=== PATIENT | male | born 1965 | race Caucasian/White ===

== ENCOUNTER 2016-12-30 14:39 | Emergency (ER) | payer OTHER ==
[~2016-12-30] VITALS: Ht 170.2 cm; Wt 100.0 kg
[2016-12-30 14:41] VITALS: Ht 170.2 cm; Wt 100.0 kg
[2016-12-30] MEDS ORDERED: KETOROLAC 30 MG INJ IV STA (15:36)
[2016-12-30] MEDS ORDERED: SOD CHLORIDE 0.9% 1,000 ML IV ONE (16:00)
[2016-12-30] MEDS ORDERED: METOCLOPRAMIDE 10 MG INJ IV ONE (16:00)
[2016-12-30] MEDS ORDERED: DIPHENHYDRAMINE 50 MG INJ IV ONE (16:00)
--- NOTE | 2016-12-30 16:27 | RADRPT ---
PROCEDURE: CT Brain without contrast. CLINICAL INDICATION: Headache TECHNIQUE: A CT of the brain was performed on a multidetector CT scanner utilizing axial imaging f rom the skull base through the vertex without IV contrast. Multiplanar reformatted images were made . Images were reviewed on a PACS workstation. The CTDIvol is 44 mGy and the DLP is 720 mGycm. Individualized dosed optimization technique was used for the performance of this exam. This included 1. Automated exposure control. 2. Adjustment of the mA and / or kV according to the patient's size. 3. The use of iterative reconstruction technique. COMPARISON: None FINDINGS: There is no intracranial hemorrhage, mass effect, or midline shift. No extra-axial fluid collection is seen. The ventricles and sulci are normal in size and configuration. The density of the brain is normal, and the carranza white matter differentiation appears well-preserved. The visualized paranasal sinuses and osseous structures are grossly unremarkable. IMPRESSION: 1. No evidence of acute intracranial pathology. 2. The brain is normal in appearance. .Edvin King MD, Date Time Electronically viewed and signed by .Edvin King MD, on 12/30/2016 16:27 .A/
[2016-12-30] MEDS ORDERED: HYDR-906 PO (16:55)
[2016-12-30] MEDS ORDERED: IBUP-1542 PO (16:55)
[2016-12-30 17:03] VITALS: BP 130/76; PULSE 55; RESP 20; TEMP 98.2
--- NOTE | 2016-12-30 17:03 | ERD ---
ER Documentation Chief Complaint Date/Time DATE: 12/30/16 TIME: 17:00 Chief Complaint pt c/o right sided headache x 3 days HPI This is a 51-year-old male presents to the ER with a right-sided headache that started 3 days ago. Patient states that pain is stabbing in nature rated as 5 out of 10. Patient denies any eyeball pain or vision changes or vision loss. He denies any nausea or vomiting. He does not have a fever does not have any chills. He denies any neck pain or neck stiffness. Patient did have a recent upper respiratory infection, and his had similar symptoms. Patient has not taken anything for the headache. He denies any dizziness, loss of consciousness, trauma to the head. ROS 12 point review of systems was done, all negative except per HPI. Medications Home Meds Active Scripts Hydrocodone/Acetaminophen ([place] 5-325 Tablet) 1 Each Tablet, 1 TAB PO Q6H Y for PAIN, #20 TAB Prov:COLLIN CRUZ 12/30/16 Ibuprofen* (Motrin*) 600 Mg Tab, 600 MG PO Q6, #30 TAB Prov:BEVERLY CRUZNA C 12/30/16 Allergies Allergies: Coded Allergies: No Known Allergy (Unverified , 12/30/16) PMhx/Soc Medical and Surgical Hx: pt denies Medical Hx, pt denies Surgical Hx Hx Alcohol Use: Yes Hx Substance Use: No Hx Tobacco Use: No Smoking Status: Current every day smoker Physical Exam Vitals Vital Signs Date Time Temp Pulse Resp B/P Pulse Ox O2 Delivery O2 Flow Rate FiO2 12/30/16 14:41 97.3 74 18 128/85 98 Physical Exam GENERAL: The patient is well developed and appropriate for usual state of health , in no apparent distress. HEENT: Atraumatic. Conjunctivae are pink. Pupils equal, round, and reactive to light. Extraocular muscles are grossly intact. Bilateral tympanic membranes are clear with no evidence of erythema, bulging or perforation. No sinus tenderness. NECK: C-spine is soft and supple. There is no cervical lymphadenopathy. CHEST: Clear to auscultation bilaterally. There are no rales, wheezes or rhonchi. HEART: Regular rate and rhythm. No murmurs, clicks, rubs or gallops. EXTREMITIES: Equal pulses bilaterally. There is no peripheral clubbing, cyanosis or edema. No focal swelling or erythema. Full range of motion. Grossly neurovascularly intact. NEURO: Alert and oriented. Cranial nerves II through XII are intact. Motor strength in all 4 extremities with 5/5 strength. Sensation grossly intact. Normal speech and gait. Negative Rhomberg. +2 DTRs. SKIN: There is no apparent rash or petechia. The skin is warm and dry. Results 24 hrs Current Medications Medications (Trade) Dose Ordered Sig/Champ Route PRN Reason Start Time Stop Time Status Last Admin Dose Admin Ketorolac Tromethamine (Toradol) 30 mg ONCE STAT IV 12/30/16 15:36 12/30/16 15:39 DC 12/30/16 15:52 Metoclopramide HCl (Reglan) 10 mg ONCE ONCE IV 12/30/16 16:00 12/30/16 16:01 DC 12/30/16 15:54 Diphenhydramine HCl 25 mg 25 mg ONCE ONCE IV 12/30/16 16:00 12/30/16 16:01 DC 12/30/16 15:54 Sodium Chloride (NS) 1,000 ml @ 1,000 mls/hr Q1H ONCE IV 12/30/16 16:00 12/30/16 16:59 DC 12/30/16 15:51 Procedures/MDM Differential Diagnosis includes but is not limited to; tension headache, migraine headache, cluster headache, sinus headache, nonspecific febrile headache, trigeminal neurologia, subdural hematoma, subarachnoid bleeding, meningitis, encephalitis. Patient is neurologically intact with no focal neurological deficits. Patient may have trigeminal neuralgia as his description of the pain is in the trigeminal nerve distribution. Patient will be sent home with ibuprofen and [place]. He Needs to follow-up with his primary care doctor within 1-2 days or return to ER sooner if symptoms worsen. My medical decision making sure with the patient he understands and agrees with plan. Departure Diagnosis: Primary Impression: Headache Condition: Stable Patient Instructions: Trigeminal Neuralgia Additional Instructions: Call your primary care doctor TOMORROW for an appointment during the next 1-2 days.See the doctor sooner or return here if your condition worsens before your appointment time. COLLIN CRUZ Dec 30, 2016 17:02
== END 2016-12-30 17:03 | disposition home or self-care (01) ==
LOC: FTE 14:39
DX: R51 Headache (principal); F17.210 Nicotine dependence, cigarettes, uncomplicated
CPT/HCPCS: 70450; 96374; 96375; J1200; J1885; J2765; J7030; Z7502

== ENCOUNTER 2017-11-28 11:20 | Emergency (ER) | END 2017-11-28 12:53 | disposition home or self-care (01) ==

== ENCOUNTER 2018-10-10 17:24 | Emergency (ER) | payer OTHER ==
[~2018-10-10] VITALS: Ht 170.2 cm; Wt 103.1 kg
[~2018-10-10 17:24] MED LIST: CYCL10TA7 PO; HYDR-4011 PO; IBUP-1542 PO; NAPR-985 PO
[2018-10-10 17:56] VITALS: BP 144/101; PULSE 65; RESP 18; Ht 170.2 cm; Wt 103.1 kg
[2018-10-10] MEDS ORDERED: IBUPROFEN 600 MG TAB PO ONE (20:00)
--- NOTE | 2018-10-10 20:12 | ERD ---
ER Documentation Chief Complaint Chief Complaint C/O RIGHT SIDE OF RIB PAIN S/P FALL INTO BATH TUB FEW DAYS AGO HPI 52-year-old male presents emergency department complaining of right mid rib pain for the past 2 days after fall in his bathtub. He states he struck his right mid ribs on the edge of the bath. He reports sharp, constant, 10/10 pain. He denies any hemoptysis, fevers, chills, head injury, loss of consciousness, or other symptoms at this time. He tried no medication for relief of symptoms. ROS All systems reviewed and are negative except as per history of present illness. Medications Home Meds Active Scripts Naproxen* (Naprosyn*) 500 Mg Tablet, 500 MG PO BID PRN for PAIN AND/OR INFLAMMATION, #30 TAB Prov:SLY FAULKNER PA-C 10/10/18 Cyclobenzaprine Hcl* (Cyclobenzaprine Hcl*) 10 Mg Tablet, 10 MG PO TID, #15 TAB Prov:LALO WATT PA-C 11/28/17 Naproxen* (Naprosyn*) 500 Mg Tablet, 500 MG PO BID PRN for PAIN AND/OR INFLAMMATION, #30 TAB Prov:LALO WATT PA-C 11/28/17 Hydrocodone/Acetaminophen ([place] 5-325 Tablet) 1 Each Tablet, 1 TAB PO Q6H PRN for PAIN, #7 TAB Prov:LALO WATT PA-C 11/28/17 Hydrocodone/Acetaminophen ([place] 5-325 Tablet) 1 Each Tablet, 1 TAB PO Q6H PRN for PAIN, #20 TAB Prov:COLLIN CRUZ 12/30/16 Ibuprofen* (Motrin*) 600 Mg Tab, 600 MG PO Q6, #30 TAB Prov:COLLIN CRUZ 12/30/16 Allergies Allergies: Coded Allergies: No Known Allergy (Unverified , 12/30/16) PMhx/Soc Medical and Surgical Hx: pt denies Medical Hx, pt denies Surgical Hx History of Surgery: No Hx Neurological Disorder: No Hx Respiratory Disorders: No Hx Cardiac Disorders: No Hx Psychiatric Problems: No Hx Miscellaneous Medical Probl: No Hx Alcohol Use: Yes Hx Substance Use: No Hx Tobacco Use: No Smoking Status: Never smoker FmHx Family History: No diabetes Physical Exam Vitals Physical Exam Const: No acute distress Head: Atraumatic Eyes: Normal Conjunctiva ENT: Normal External Ears, Nose and Mouth. Neck: Full range of motion. No meningismus. Resp: Clear to auscultation bilaterally Cardio: Regular rate and rhythm, no murmurs Ribs: Tenderness palpation of the right mid ribs. No ecchymosis. No crepitus. Skin: No petechiae or rashes Back: No midline or flank tenderness Ext: No cyanosis, or edema Neur: Awake and alert Psych: Normal Mood and Affect Results 24 hrs Current Medications Medications Dose Sig/Champ Start Time Status Last (Trade) Ordered Route PRN Stop Time Admin Dose Reason Admin Ibuprofen 600 mg ONCE ONCE 10/10/18 DC 10/10/18 (Motrin) PO 20:00 20:06 10/10/18 20:01 [place] [address] Radiology Main Line: [phone] DIAGNOSTIC IMAGING REPORT Patient: STEPHANIE LEARY : 1965 Age: 52 Sex: M MR #: [id number] DOS: 10/10/18 0000 Ordering MD: SLY FAULKNER PA-C Location: [facility] Room/Bed: PROCEDURE: XR right ribs CLINICAL INDICATION: R rib pain sp fall . TECHNIQUE: multiple frontal and oblique views of the right ribs were obtain ed. The images were reviewed on a PACS workstation. COMPARISON: None FINDINGS: There are prominent interstitial markings of the visualized lungs, which may represent chronic lung changes. There is no evidence of significant right pleural effusion or pneumothorax. No suspicious osseous lesions. There is no evidence of acute displaced rib fracture. IMPRESSION: No radiographic evidence of acute displaced rib fracture. RPTAT: HH Physician Sean Date Time Electronically viewed and signed by Joe Mcfarlane Physician on 10/10/2018 21:00 HtN/ CC: SLY FAULKNER PA-C [id number] Procedures/MDM 52-year-old male presents to the emergency department complaining of right mid rib pain. X-ray showed no evidence of rib fracture. Low suspicion for pneumothorax, significant chest wall injury, hemoperitoneum, or other emergencies. Patient will be discharged home with prescription to treat his symptoms. No evidence of life-threatening pathology at time of discharge. Pt/family in agreement with discharge plan/diagnosis. Pt/family advised to return immediately with any new or worsening symptoms. Follow-up with primary care physician within the next 1-2 days. Patient's blood pressure was elevated (>120/80) but appears stable without evidence of hypertension emergency or urgency. The patient is to follow-up and pursue outpatient monitoring and therapy with their primary care physician within 1 week and return immediately if they have any new, worsening, or concerning symptoms. Disclaimer: Inadvertent spelling and grammatical errors are likely due to EHR/dictation software use and do not reflect on the overall quality of patient care. Also, please note that the electronic time recorded on this note does not necessarily reflect the actual time of the patient encounter. Departure Diagnosis: Primary Impression: Rib contusion Condition: Fair Patient Instructions: Rib Contusion Additional Instructions: Follow up with your PCP within the next 1-3 days for a repeat evaluation. If you require a referral to a specialist, your Primary Care Provider may be able to provide this for you. In most patient cases, a referral is not required. If you have further questions regarding this matter, please ask your Primary Care Provider. Return the the emergency department immediately if symptoms worsen or change. If you have any questions regarding medications, ask your pharmacist or us before you leave. If any adverse reactions, occur while taking your medications, discontinue the treatment and return to the emergency department immediately. If any new or worsening symptoms, uncontrolled fevers, or other unexplained symptoms occur, return to the emergency department immediately. Take your medications as directed, and complete the entire course of treatment. SYL FAULKNER PA-C Oct 10, 2018 20:11
[2018-10-10] MEDS ORDERED: NAPR-985 PO (21:04)
== END 2018-10-10 21:14 | disposition home or self-care (01) ==
LOC: FTE 17:24
DX: S20.211A Contusion of right front wall of thorax, initial encounter (principal); W18.2XXA Fall in (into) shower or empty bathtub, initial encounter; Y92.9 Unspecified place or not applicable
CPT/HCPCS: 71100; Z7502; Z7610